=== PATIENT | female | born 1950 | race Caucasian/White ===

== ENCOUNTER 2020-07-05 11:38 | Emergency (ER) | payer SELFPAY ==
[2020-07-05] MEDS ORDERED: Bacitracin 1 PK ONE (12:24)
--- NOTE | 2020-07-05 12:27 | CT ---
Exam: Head CT without contrast HISTORY: Fall. Pain. COMPARISON: none FINDINGS: Hemorrhage: No intraparenchymal hemorrhage or extra-axial hematoma. Brain parenchyma: Cortical mcknight-white matter differentiation is preserved. No mass effect or midline shift. Basilar cisterns are patent. Ventricular system: Ventricles and sulci are patent and symmetric. Calvarium: Intact. Scalp: Left temporal scalp hematoma. Sinuses and mastoid air cells: Adequate aeration. IMPRESSION: 1. No intracranial post traumatic sequelae 2. Left scalp hematoma.
[2020-07-05] MEDS ORDERED: Ketorolac Tromethamine 30 MG/ML VIAL ONE (13:20)
== END 2020-07-05 13:41 | disposition home or self-care (01) ==
LOC: ERS 11:38
DX: S80.01XA Contusion of right knee, initial encounter (principal); S00.03XA Contusion of scalp, initial encounter; W18.2XXA Fall in (into) shower or empty bathtub, initial encounter
CPT/HCPCS: 70450; 96372; J1885